=== PATIENT | male | born 1975 | race Caucasian/White ===

== ENCOUNTER 2023-11-25 15:11 | Emergency (ER) | payer MEDICAID ==
[~2023-11-25] VITALS: Ht 172.7 cm; Wt 75.1 kg
[2023-11-25 15:35] VITALS: BP 121/74; PULSE 68; RESP 19; TEMP 98.7
== END 2023-11-25 18:46 | disposition left against medical advice (07) ==
LOC: MED 15:11
DX: R53.1 Weakness (principal); Z88.0 Allergy status to penicillin
CPT/HCPCS: 82948; 99282

== ENCOUNTER 2023-12-31 17:01 | Emergency (ER) | payer MEDICAID ==
[~2023-12-31] VITALS: Ht 172.7 cm; Wt 77.1 kg
[2023-12-31 17:08] VITALS: BP 124/83; PULSE 71; RESP 18; TEMP 98.5; O2SAT 99
[2023-12-31 17:53] LABS: BASOPHILS # (AUTO) 0.1 K/uL (0.00-0.22); BASOPHILS % (AUTO) 0.8 % (0.0-2.0); EOSINOPHILS # (AUTO) 0.1 K/uL (0-0.4); EOSINOPHILS % (AUTO) 1.9 % (0.0-4.0); HEMATOCRIT 43.7 % (36-52); HEMOGLOBIN 15.2 g/dL (12.0-18.0); LYMPHOCYTES % (AUTO) 43.1 % (20.5-51.1); MEAN CORPUSCULAR HEMOGLOBIN 32 pg (27-31); MEAN CORPUSCULAR HGB CONC 35 g/dL (33-37); MEAN CORPUSCULAR VOLUME 91.6 fL (80-94); MONOCYTES # (AUTO) 0.6 K/uL (0.8-1.0); MONOCYTES % (AUTO) 8.3 % (1.7-9.3); NEUTROPHILS # (AUTO) 3.2 K/uL (1.8-7.7); NEUTROPHILS % (AUTO) 45.9 % (42.2-75.2); PLATELET COUNT (AUTO) 177 K/uL (140-450); RED BLOOD CELL COUNT(AUTO) 4.77 MIL/uL (4.20-6.10); RED CELL DISTRIBUTION WIDTH 13.2 % (11.6-13.7)
[2023-12-31 17:59] LABS: APPEARANCE,URINE CLEAR (CLEAR); BILIRUBIN,URINE NEGATIVE (NEGATIVE); BLOOD, URINE 1+ (NEGATIVE); COLOR,URINE YELLOW (YELLOW); LEUKOCYTE ESTERASE ,URINE NEGATIVE (NEGATIVE); NITRITE, URINE NEGATIVE (NEGATIVE); PROTEIN,URINE NEGATIVE (NEGATIVE); UGLUCOSE NEGATIVE (NEGATIVE)
[2023-12-31 18:04] LABS: CALCIUM 8.5 mg/dL (8.5-10.1); CARBON DIOXIDE 28.9 mmol/L (21-32); CREATININE 1.1 mg/dL (0.6-1.3); POTASSIUM 3.9 mmol/L (3.5-5.1)
[2023-12-31] MEDS: KETOROLAC 30 MG/ML VIAL IM ONE (18:06)
[2023-12-31 18:11] LABS: ALBUMIN 3.3 g/dL (3.4-5.0); BILIRUBIN,DIRECT 0.1 mg/dL (0.0-0.3); TOTAL BILIRUBIN 0.4 mg/dL (0.0-1.0); TOTAL PROTEIN, SERUM 6.5 g/dL (6.4-8.2)
[2023-12-31] MEDS ORDERED: IBUP-2213 PO (19:34)
[2023-12-31 20:40] VITALS: BP 126/87; PULSE 66; RESP 18; TEMP 98.5; O2SAT 96
== END 2023-12-31 20:40 | disposition home or self-care (01) ==
LOC: MED 17:01
DX: R10.31 Right lower quadrant pain (principal); N28.1 Cyst of kidney, acquired; Z79.1 Long term (current) use of non-steroidal anti-inflammatories (NSAID); Z88.0 Allergy status to penicillin
CPT/HCPCS: 36415; 74176; 80048; 80076; 81003; 83690; 85025; 96372; 99285; J1885